=== PATIENT | female | born 1990 | race Caucasian/White ===

== ENCOUNTER → 2023-06-01 | Outpatient (CLI) | payer SELFPAY, OTHER ==
--- NOTE | 2023-06-01 14:41 | US_ITS ---
STUDY: ULTRASOUND OF THE FEMALE PELVIS - COMPLETE REASON FOR EXAM: Female, 32 years old. Pelvic pain LMP: May 25, 2023. TECHNIQUE: Transabdominal and Transvaginal TECHNICAL QUALITY: Adequate. COMPARISON: None. FINDINGS: The uterus is anteverted and is in a midline position. The uterus is mildly enlarged and measures 10.2 cm x 6.4 cm x 5.1 cm. Normal uterine cervix. The endometrium measures 6.3 mm in thickness, and is hyperechoic. There is no demonstrated endometrial mass. There is no demonstrated myometrial mass. I.U.D. - The patient does not have an I.U.D. The right ovary is visualized. The right ovary measures 4.6 cm x 2.7 cm x 2.9 cm. There is no right ovarian cyst or ovarian mass. There is no visualized right adnexal mass or complex lesion. There is normal arterial and normal venous vascularity. The left ovary is visualized. The left ovary measures 4.4 cm x 2.5 cm x 2.3 cm. There is no left ovarian cyst or ovarian mass. There is no visualized left adnexal mass or complex lesion. There is normal arterial and normal venous vascularity. There is no fluid in the cul-de-sac. The pre void volume of the bladder was 56 ml. US/Transvaginal Non- IMPRESSION: Normal female pelvis. Electronically Signed: Vu Zuleta MD at 15:34 EST ,
--- OUTSIDE RECORDS SUMMARY | 2023-06-01 18:41 | XMS RPT_ITS | CCD ---
Author Name Unknown Address [address] [place] [address] Organization [facility] Care Team Providers Care Toilet Products Molder Name Role Phone Tristan Chase MD Unavailable Tristan Chase MD Unavailable Roscoe CARRILLO, Dr. Tristan Miller Unavailable Carroll HIGH SCHOOL FRENCH TEACHER, Michelle Unavailable Sheri Love MA Unavailable Unavailable Gordo HIGH SCHOOL FRENCH TEACHER, Susy Unavailable Unavailable Adam Singh MD Unavailable Tera Casillas PA-C Unavailable Shay MARRERO, Sylvia Jung Unavailable Uptain CNM, Crystal K Unavailable Vess HIGH SCHOOL FRENCH TEACHER, Nequincy L Unavailable Unavailable César HIGH SCHOOL FRENCH TEACHER, Ana Unavailable Unavailharper e Simone HIGH SCHOOL FRENCH TEACHER, Garima Vaughn Unavailable Unavaila ble Unavailable Unavailable Gas Station Manager/Gynecology Prov. Unavailable Un available TERA CASILLAS Attending Unavailable TERA CASILLAS Primary Care Unavailable TERA CASILLAS Admitting Unavailable SHARON, SARAI PARK Consulting Unavailable PROVIDER, UNKNOWN Consulting Unavailable Medications Current Medications Medication Drug Class(es) Dates Sig (Normalized) Sig (Original) thyroid (assisted) 90 mg oral tablet (6 sources) Start: 06-25-2020 take 1 tablet by mouth once daily Moncho Thyroid 90 MG Oral Tablet ; 1 (one) Tablet daily for 0 days Quantity: 90 {Tablet} Refills: 3 Ordered: 25-Jun-2020 MD Tristan Chase Start: 25-Jun-2020 Completed/Discontinued Medications Medication Drug Class(es) Dates Sig (Normalized) Sig (Original) 12 hr buPROPion hydrochloride 150 mg extended release oral tablet (3 sources) Aminoketone Start: 10-04-2013 End: 04-11-2014 BUPROPION HCL ER (SR), 150MG (Oral Tablet Extended Release 12 Hour) ; 1 (one) Tablet Tablet once daily in the morning for 0 days Quantity: 30 {Tablet} Refills: 2 Ordered: 11-Apr-2014 MJ Lindsey Start: 04-Oct-2013 End: 11-Apr-2014 Status: Inactive Comments: Note to pharmacist: 12- hour form, but used only once daily Problems Active Problems Problem Classification Problem Date Documented Da te Episodic/Chronic Abdominal pain (20 sources) Abdominal pain; Translations: [Unspecified abdominal pain] Onset: 04-06-2023 03-30-2023 Episodic Cardiac dysrhythmias (6 sources) Tachycardia; Translations: [Tachycardia, unspecified] 03-30-2023 Episodic Hemorrhage during ; abruptio placenta; placenta previa (3 sources) Threatened miscarriage; Translations: [Threatened ] 11-09-2016 Episodic Malaise and fatigue (9 sources) Fatigue; Translations: [Other fatigue] 03-30-2023 Episodic Malposition; malpresentation (6 sources) Breech presentation; Translations: [Maternal care for breech presentation, fetus 1] 01-04-2019 Episodic Menstrual disorders (7 sources) Irregular periods; Translations: [Irregular menstruation, unspecified] 03-30-2023 Chronic Nonspecific chest pain (3 sources) Chest pain; Translations: [Chest pain, unspecified] 07-30-2018 Episodic Other complications of (3 sources) complications 01-30-2019 Episodic Past or Other Problems Problem Classification Problem Date Documented Da te Episodic/Chronic Unclassified (3 sources) Fatigue - The fatigue has been occurring for 5 months. The course has been constant. The fatigue occurs on arising in the morning and interferes with normal daily activities (Patient states her fatigue is present most days and will worsen if she over exerts herself which will result in a significant drop in energy over the following days). The symptoms have been associated with abdominal pain (Patient states the pain and fullness is in the left upper quadrant, she describes it as a dull aching, she notices increased pressure with specific body positions and primary worsening when lying on her left side as if something is pushing out , patient denies association of symptoms with consuming food, she notes mild constipation as a baseline for her), excessive sleeping, headache, muscle weakness, nasal stuffiness, runny nose and sore throat. 03-30-2023 Unclassified (3 sources) post dates evaluation - Currently under care of boom cat operator. Here to have post dates u/s. Tried castor oil yesterday. 01-30-2019 Unclassified (3 sources) Position of the Baby - Patient is a patient of the [facility]. Patient is here for an ultrasound to check position of the baby. 01-04-2019 Unclassified (3 sources) Confirming Position via Ultrasound - Here to see if baby is vertex or breech from [facility] 12-14-2018 Unclassified (3 sources) tachycardia - Currently 17 wks . Complaints of shortness of breath and dyspnea and chest pain and tachycardia. She reports it was present in other pregnancies and gets worse as the progressesOn thyroid medicaiton and had recent labs and dose change and is followed by Dr Orellana in [place]. 07-30-2018 Unclassified (3 sources) possible demise - Had possible miscarriage in August at 5 wks from LMP. Then in October suspected again. She went to see Rosalva Brown wire spring relay adjuster and had 2 ultrasounds showing a 7 week sac but no heartbeat. Has not had bleeding. 11-09-2016 Unclassified (3 sources) Post- visit - The patient is here for a scheduled follow-up visit after a vaginal delivery. The was complicated by postdates without meconium. The patient feels well with no complaints, is sleeping well and has good energy level. There are no urinary problems. There are no bowel problems. Perineum/wound: perineum healing well. The patient is formula feeding the . Menstruation: Last menstrual period date: (12-22). Patient states that sexual activity has resumed. The patient has resumed physical activity. Patient states that she is coping/adjusting to motherhood well and family is interacting well with . 01-01-2015 Unclassified (3 sources) visit - The patient is here for a 40 week visit. 10-22-2014 Unclassified (3 sources) visit - The patient is here for a 39 week visit. 10-17-2014 Unclassified (3 sources) visit - The patient is here for a 38 week visit. 10-10-2014 Unclassified (3 sources) visit - The patient is here for a 37 week visit. 10-01-2014 Unclassified (6 sources) visit - The patient is here for a 36 week visit. 09-24-2014 Unclassified (3 sources) visit - The patient is here for a 34 week visit. 09-12-2014 Unclassified (3 sources) visit - The patient is here for a 33 week visit. 09-03-2014 Unclassified (3 sources) visit - The patient is here for a 32 week visit. 08-29-2014 Unclassified (3 sources) visit - The patient is here for a 28 week visit. 07-30-2014 Unclassified (3 sources) visit - Note for visit : -18 hrs of RUQ pain, walking slowly due to pain. Nausea. No fever. No bleeding. 06-16-2014 Unclassified (3 sources) Visit - The patient is here for a 20 week visit. 06-05-2014 Unclassified (3 sources) Visit, Initial - The patient suspects she is due to a positive home test, missed menses and morning sickness. Last menstrual period: Date: (01/11/2014). - (1). The patient complains of nausea and vomiting. There has been no vaginal discharge. There has been no vaginal bleeding. There have been no urinary problems. Bowel problems include constipation. Contraceptive history includes none. 04-25-2014 Unclassified (3 sources) Follow up consultation - The patient is here to follow-up after Emergency Room/Urgent Care (03/30/14 - went in with muscle spasms and jerking of extremities. EKG done and patient was transferred to [facility] EEG and brain CT were done there. Per patient everything was ok except her thyroid and low magnesium. She was started on synthroid and told TSH would need rechecked at some point in the future. Has headaches - they are about once a day - and continues with jerking of hands and feet. Also having some dizziness. Has been eating and drinking well. Is to schedule f/u with neurologist. No triggers noted for symptoms other than maybe when she is tired; do not occur daily. Per pt's the hospital told them it could have been stress related since they had moved the day before they started.She is 13 weeks - has not yet established with an OB. Is taking vitamins.). 04-15-2014 Unclassified (3 sources) [ADDITIONAL REASON] Transition into care - The patient is transitioning into care from a hospital and a summary of care was reviewed (partially; only records from [facility] were available) . 04-15-2014 Unclassified (3 sources) recheck - Patient is here for a 2 wk recheck from on 01/25/14. She was seen for abdominal pain and started on ranitidine and miralax. States that the pain has gotten better (less frequent) but still has occasional sharp pain in LUQ. She has continued to take some of the medication from the dredge captain - just those for digestion. Took miralax for one week and then switched to a natural medication which she doesn't think is helping quite as much. Taking ranitidine. Appetite has improved. Having 1-2 BMs daily. Pain now is mostly when riding in the bugging or doing heavy lifting. 01-29-2014 Unclassified (3 sources) Abdominal pain - The onset of the abdominal pain has been gradual and has been occurring in a persistent pattern for 9 months. The course has been recurrent (Symptoms are intermittent but experiences them daily.). The pain is described as moderate (Describes as piercng/throbbing pain in left upper abdomen (under her rib). Sometimes radiates down. Sometimes worse with breathing and eating (no particular foods noted). Occasionally has dizziness, nausea, and chills - these sometimes accompany the pain but not always. Periods are regular - finished yesterday. Has been seeing a dredge captain and he had done bloodwork and is giving her different medications to try - has approx 10 pill bottles with her today. Pain is always on the left side. At its worst it is 8/10 but usually is 5-6/10. No diarrhea, more often constipation - last BM was Monday afternoon. Usually has a BM every few days. No bloating but some fullness. 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 Given levsin which didn't seem to help with symptoms.Was in the ER 03/2013 for the pain. Abd CT done at that time which showed an ovarian cyst. Hasn't had any further imaging since then. Was in the ER again a few weeks ago for muscle spasms - more labs done which were essentially normal.). There has been no associated vomiting. 01-16-2014 Unclassified (3 sources) Follow up laboratory test results - Lab results returned on : (09/16/13) include other (abnormal thyroid). Current symptoms include other (Patient complains of occasional fatigue. Denies any other symptoms.). Note for Laboratory test results follow-up : Patient's weight has increased 14# since her last visit which was 3 months ago. 10-07-2013 Unclassified (3 sources) Abdominal pain - The onset of the abdominal pain has been gradual and has been occurring in a persistent pattern for 8 weeks. The course has been increasing. The pain is described as a moderate sharp pain. The pain is located in the right lower quadrant, left lower quadrant and suprapubic area and radiates to the back. The symptoms are aggravated by meals (1/2 to 1 hour after eating) and meals (2 to 4 hours after eating) but have no relieving factors. The symptoms have been associated with bloating, fever (chills) and nausea, while the symptoms have not been associated with constipation, dark urine, diarrhea, dysuria or vomiting. Note for Abdominal pain : Patient was seen by a natural doctor who believes patient has a ovarian infection. He did a test of blood on a qtip per mother. 06-20-2013 Unclassified (3 sources) Abdominal pain - The onset of the abdominal pain has been gradual and has been occurring in a persistent pattern for 2 weeks. The course has been increasing. The pain is described as a moderate sharp pain and dull ache. The pain is located in the left lower quadrant and does not radiate. The symptoms are aggravated by meals (1/2 to 1 hour after eating) (sometimes eating resolves the pain too) but have no relieving factors. The symptoms have been associated with nausea, while the symptoms have not been associated with bloating, constipation, diarrhea, dysuria, fever, heartburn, hematemesis or vomiting. Previous evaluations have included CT scan. Note for Abdominal pain : Pt c/o dizziness at times 04-20-2013 Results Test Name Value Interpretation Reference Range Facil ity Vital Signs Date Time Vital Sign Value Performing Clinician Faci komal 03-30-2023 13:46-0500 Body height 165.74 cm Sheri Love MA [facility] [employer] 03-30-2023 13:46-0500 Body mass index (BMI) [Ratio] 45.74 kg/m2 Sheri Love MA [employer] 03-30-2023 13:46-0500 Body surface area Derived from formula 2.28 m2 Sheri Love MA [employer] 03-30-2023 13:46-0500 Body weight 125.65 kg Sheri Love MA [employer]. 03-30-2023 13:46-0500 Diastolic blood pressure 87 mm[Hg] Sheri Love MA [employer]; [employer] Encounters Encounter Date Encounter Type Care Provider Facility Start: 04-11-2023 End: 04-11-2023 Orders Trisatn Chase MD Work Phone: [facility] Start: 04-06-2023 End: 04-06-2023 [facility] Start: 03-30-2023 End: 03-30-2023 Office outpatient visit 25 minutes Tristan Chase MD Work Phone: [facility] Start: 06-25-2020 End: 06-25-2020 Patient encounter procedure Tristan Chase MD Work Phone: [facility] Start: 06-17-2020 End: 06-17-2020 Orders Tristan Chase MD Work Phone: [facility] Start: 09-25-2019 End: 09-25-2019 Office outpatient visit 15 minutes Tristan Chase MD Work Phone: [facility] Start: 02-11-2019 End: 02-11-2019 Telephone follow-up Tristan Chase MD Work Phone: [facility] Start: 01-30-2019 End: 01-30-2019 Patient encounter procedure Tristan Chase MD Work Phone: [facility] Start: 01-04-2019 End: 01-04-2019 Office outpatient visit 5 minutes Tristan Chase MD Work Phone: [facility] Start: 12-14-2018 End: 12-14-2018 Office outpatient visit 10 minutes Tristan Chase MD Work Phone: [facility] Start: 08-10-2018 End: 08-10-2018 Historical Summary Tristan Chase MD Work Phone: [facility] Start: 07-30-2018 End: 07-30-2018 Patient encounter procedure Tristan Chase MD Work Phone: [facility] Start: 11-09-2016 End: 11-09-2016 Patient encounter procedure Tristan Chase MD Work Phone: [facility] Start: 08-09-2016 End: 08-10-2016 Orders Tristan Chase MD Work Phone: [facility] Start: 08-08-2016 End: 08-08-2016 Orders Tristan Chase MD Work Phone: [facility] Start: 12-18-2015 End: 12-18-2015 Nursing evaluation of patient and report Tristan Chase MD Work Phone: [facility] Start: 07-21-2015 End: 07-22-2015 Orders Tristan Chase MD Work Phone: [facility] Start: 06-22-2015 End: 06-22-2015 Orders Tristan Chase MD Work Phone: [facility] Start: 12-31-2014 End: 01-01-2015 Patient encounter procedure Tristan Chase MD Work Phone: [facility] Start: 10-27-2014 End: 10-27-2014 Patient encounter procedure Tristan Chase MD Work Phone: [facility] Start: 10-22-2014 End: 10-22-2014 Patient encounter procedure Tristan Chase MD Work Phone: [facility] Start: 10-17-2014 End: 10-17-2014 Patient encounter procedure Tristan Chase MD Work Phone: [facility] Start: 10-10-2014 End: 10-10-2014 Patient encounter procedure Tristan Chase MD Work Phone: [facility] Start: 10-01-2014 End: 10-01-2014 Patient encounter procedure Tristan Chase MD Work Phone: [facility] Start: 09-24-2014 End: 09-24-2014 Patient encounter procedure Tristan Chase MD Work Phone: [facility] Start: 09-19-2014 End: 09-19-2014 Patient encounter procedure Tristan Chase MD Work Phone: [facility] Start: 09-12-2014 End: 09-12-2014 Patient encounter procedure Tristan Chase MD Work Phone: [facility] Start: 09-03-2014 End: 09-03-2014 Patient encounter procedure Tristan Chase MD Work Phone: [facility] Start: 09-02-2014 End: 09-02-2014 Orders Tristan Chase MD Work Phone: [employer] Start: 08-29-2014 End: 08-29-2014 Patient encounter procedure Tristan Chase MD Work Phone: [facility] Start: 07-30-2014 End: 07-30-2014 Patient encounter procedure Tristan Chase MD Work Phone: [facility] Start: 07-02-2014 End: 07-02-2014 Patient encounter procedure Tristan Chase MD Work Phone: [facility] Start: 06-16-2014 End: 06-16-2014 Patient encounter procedure Tristan Chase MD Work Phone: [facility] [employer] Start: 06-05-2014 End: 06-05-2014 Patient encounter procedure Tristan Chase MD Work Phone: [facility] Start: 05-28-2014 End: 05-28-2014 Orders Tristan Chase MD Work Phone: [employer] Start: 05-08-2014 End: 05-08-2014 Patient encounter procedure Tristan Chase MD Work Phone: [facility] Start: 04-24-2014 End: 04-25-2014 Patient encounter procedure Tristan Chase MD Work Phone: [facility] Start: 04-11-2014 End: 04-15-2014 Patient encounter procedure Tristan Chase MD Work Phone: [facility] Start: 01-29-2014 End: 01-29-2014 Patient encounter procedure Tristan Chase MD Work Phone: [facility] Start: 01-15-2014 End: 01-16-2014 Patient encounter procedure Tristan Chase MD Work Phone: [facility] Start: 10-04-2013 End: 10-07-2013 Patient encounter procedure Tristan Chase MD Work Phone: [facility] Start: 06-18-2013 End: 06-20-2013 Patient encounter procedure Tristan Chase MD Work Phone: [facility] Start: 04-20-2013 End: 04-20-2013 Patient encounter procedure Tristan Chase MD Work Phone: [facility] Procedures Date Procedure Procedure Detail Performing Clinician Start: 03-30-2023 End: 04-06-2023 Ct abdomen w/contrast material Tera Casillas PA-C Work Phone: Start: 01-30-2019 End: 01-30-2019 Us preg uterus after 1st trimest 04/10 gestation Tristan Chase MD Work Phone: Start: 01-30-2019 End: 01-30-2019 Ob care antepartum vag dlvr & Tristan Chase MD Work Phone: Start: 08-09-2018 End: 08-09-2018 Echocardiography Tristan Villarreal Work Phone: Plan of Treatment Date Care Activity Detail Author Start: 03-30-2023 Ct abdomen w/contras t material Abdomen Only CT W/ Contrast per protocol ([id number]) Start: 30-Mar-2023 Intent [facility] [employer] [employer].; [employer] Immunizations Immunization Date Immunization Notes Care Provider Fa cili 12-04-1997 diphtheria, tetanus toxoids and acellular pertussis vaccine Tristan Chase MD Work Phone: [employer] 12-04-1997 measles, mumps and rubella virus vaccine Tristan Chase MD Work Phone: [employer] 12-04-1997 trivalent poliovirus vaccine, live, oral Tristan Chase MD Work Phone: [employer]; [employer] 07-13-1993 diphtheria, tetanus toxoids and acellular pertussis vaccine Tristan Chase MD Work Phone: [employer] 07-13-1993 trivalent poliovirus vaccine, live, oral Tristan Chase MD Work Phone: [employer]; [employer] 11-24-1992 haemophilus influenz ae type b vaccine, PRP-T conjugate Tristan Chase MD Work Phone: [employer]; [employer] 11-24-1992 measles, mumps and rubella virus vaccine Tristan Chase MD Work Phone: [employer]; [employer] 02-25-1992 diphtheria, tetanus toxoids and acellular pertussis vaccine Tristan Chase MD [facility] [employer]. 1991 diphtheria, tetanus toxoids and acellular pertussis vaccine Tristan Chase MD Work Phone: [facility].; [facility] [employer] [facility]. 1991 trivalent poliovirus vaccine, live, oral Tristan Chase MD Work Phone: [facility] [employer].; [employer] 1991 diphtheria, tetanus toxoids and acellular pertussis vaccine Tristan Chase MD Work Phone: [facility] [employer] [employer].; [employer]. 1991 trivalent poliovirus vaccine, live, oral Tristan Chase MD Work Phone: [employer] Payers Date Payer Category Payer Unknown [id number] Unknown 30-1 Unknown Social History Date Type Detail Facility Spouse Spouse [facility] [employer]; [employer] Tobacco Use: Tobacco Use: ; Never smoker. [facility] [employer].; [employer] Female [facility] [employer] Work Phone: Never smoked tobacco [employer] Work Phone: Summary Purpose Family History No Family History Records Found Father Status:Active Comments:In good health. Baljeet Erb Mother Status:Active Comments:In good health. Zabrina Erb Father Status:Active Comments:In good health. Baljeet Erb Mother Status:Active Comments:In good health. Zabrina Erb Father Status:Active Comments:In good health. Baljeet Erb Mother Status:Active Comments:In good health. Zabrina Erb Advance Directives No Advanced Directives Records FoundNo Advanced Directives Records FoundNo Advanced Directives Records Found Additional Source Comments INFORMATION SOURCE (unrecogn ized section and content) DATE CREATED AUTHOR AUTHOR'S ORGANIZ ATION 04/01/2023 [facility] DATE CREATED AUTHOR AUTHOR'S ORGANVINCENT ATION 04/15/2023 [facility] FOR RECORDS PERTAINING TO PATIENTS WHO ARE OR HAVE BEEN ENROLLED IN A CHEMICAL DEPENDENCY/SUBSTANCEABUSE PROGRAM, SOME INFORMATION MAY BE OMITTED. This clinical summary was aggregated from multiple sources. Caution should be exercised in using it in the provision of clinical care. This summary normalizes information from multiple sources, and as a consequence, information in this document may materially change the coding, format and clinical context of patient data. In addition, data may be omitted in some cases. CLINICAL DECISIONS SHOULD BE BASED ON THE PRIMARY CLINICAL RECORDS. [employer] [facility]. provides no warranty or guarantee of the accuracy or completeness of information in this document.
== END | disposition home or self-care (01) ==
PROVIDERS: PCP Physician Assistant; Referring Provider Nurse Practitioner Women's Health; Visit Provider Nurse Practitioner Women's Health
DX: R10.2 Pelvic and perineal pain (principal)
CPT/HCPCS: 76830; 76856

== ENCOUNTER → 2023-06-19 | Outpatient (CLI) | payer OTHER, SELFPAY ==
--- OUTSIDE RECORDS SUMMARY | 2023-06-19 12:05 | XMS RPT_ITS | CCD ---
Author Name Unknown Address [address] [place] [address] Organization [facility] Care Team Providers Care Counselor At Law Name Role Phone Tristan Chase MD Unavailable [phone] Tristan Chase MD Unavailable Roscoe CARRILLO, Dr. Tristan Miller Unavailable Carroll MENTAL HEALTH PROGRAM SPECIALIST, Michelle Unavailable Sheri Love MA Unavailable Unavailable Gordo MENTAL HEALTH PROGRAM SPECIALIST, Susy Unavailable Unavailable Adam Singh MD Unavailable Tera Casillas PA-C Unavailable Shay MARRERO, Sylvia Jung Unavailable Uptain CNM, Crystal K Unavailable Vess MENTAL HEALTH PROGRAM SPECIALIST, Nequincy L Unavailable Unavailable César MENTAL HEALTH PROGRAM SPECIALIST, Ana Unavailable Unavailharper e Simone MENTAL HEALTH PROGRAM SPECIALIST, Garima Vaughn Unavailable Unavaila ble Unavailable Unavailable Peanut Butter Maker/Gynecology Prov. Unavailable Un available TERA CASILLAS Attending Unavailable TERA CASILLAS Primary Care Unavailable TERA CASILLAS Admitting Unavailable SHARON, SARAI PARK Consulting Unavailable PROVIDER, UNKNOWN Consulting Unavailable Medications Current Medications Medication Drug Class(es) Dates Sig (Normalized) Sig (Original) thyroid (half-way) 90 mg oral tablet (6 sources) Start: [...] dates evaluation - Currently under care of grocery deliverer. Here to have post dates u/s. Tried castor oil yesterday. 01-30-2019 Unclassified (3 sources) Position of the Baby - Patient is a patient of the [facility] [place]. Patient is here for an ultrasound to check position of the baby. 01-04-2019 Unclassified (3 sources) Confirming Position via Ultrasound - Here to see if baby is vertex or breech from [facility] [place] 12-14-2018 Unclassified (3 sources) tachycardia - Currently 17 wks . Complaints of shortness of breath and dyspnea and chest pain and tachycardia. She reports it was present in other pregnancies and gets worse as the progressesOn thyroid medicaiton and had recent labs and dose change and is followed by Dr Orellana in [place]. 07-30-2018 Unclassified (3 sources) possible demise - Had possible miscarriage in August at 5 wks from LMP. Then in October suspected again. She went to see Rosalva Brown displayer merchandise and had 2 ultrasounds showing a 7 [...] EKG done and patient was transferred to [facility] EEG and brain CT were done [...] care was reviewed (partially; only records from [facility] were available) . 04-15-2014 Unclassified (3 sources) recheck - Patient is here for a 2 wk recheck from on 01/25/14. She was seen for abdominal pain and started on ranitidine and miralax. States that the pain has gotten better (less frequent) but still has occasional sharp pain in LUQ. She has continued to take some of the medication from the assistant professor of philosophy - just those for digestion. Took miralax [...] - finished yesterday. Has been seeing a assistant professor of philosophy and he had done bloodwork and is [...] Body height 165.74 cm Sheri Love MA [facility] 03-30-2023 13:46-0500 Body mass index (BMI) [Ratio] 45.74 kg/m2 Sheri Love MA [employer] 03-30-2023 13:46-0500 Body surface area Derived from formula 2.28 m2 Sheri Love MA [employer] 03-30-2023 13:46-0500 Body weight 125.65 kg Sheri Love MA [employer]. 03-30-2023 13:46-0500 Diastolic blood pressure 87 mm[Hg] Sheri Love MA [employer] Encounters Encounter Date Encounter Type Care Provider Facility Start: 04-11-2023 End: 04-11-2023 Orders Tristan Chase MD Work Phone: [facility] Start: 04-06-2023 End: 04-06-2023 [facility] Start: 03-30-2023 End: 03-30-2023 Office outpatient visit 25 minutes Tristan Chase MD Work Phone: [facility] Start: 06-25-2020 End: 06-25-2020 Patient encounter procedure Tristan Chase MD Work Phone: [facility] Start: 06-17-2020 End: 06-17-2020 Orders Tristan Chase MD Work Phone: [facility] Start: 09-25-2019 End: 09-25-2019 Office outpatient visit 15 minutes Tristan Chase MD Work Phone: [facility] Start: 02-11-2019 End: 02-11-2019 Telephone follow-up Tristan Chase MD Work Phone: [facility] Start: 01-30-2019 End: 01-30-2019 Patient encounter procedure Tristan Chase MD Work Phone: [facility] Start: 01-04-2019 End: 01-04-2019 Office outpatient visit 5 minutes Tristan Chase MD Work Phone: [facility] Start: 12-14-2018 End: 12-14-2018 Office outpatient visit 10 minutes Tristan Chase MD Work Phone: [facility] Start: 08-10-2018 End: 08-10-2018 Historical Summary Tristan Chase MD Work Phone: [facility] Start: 07-30-2018 End: 07-30-2018 Patient encounter procedure Tristan Chase MD Work Phone: [facility] Start: 11-09-2016 End: 11-09-2016 Patient encounter procedure Tristan Chase MD Work Phone: [facility] Start: 08-09-2016 End: 08-10-2016 Orders Tristan Chase MD Work Phone: [facility] Start: 08-08-2016 End: 08-08-2016 Orders Tristan Chase MD Work Phone: [facility] Start: 12-18-2015 End: 12-18-2015 Nursing evaluation of patient and report Tristan Chase MD Work Phone: [facility] Start: 07-21-2015 End: 07-22-2015 Orders Tristan Chase MD Work Phone: [facility] Start: 06-22-2015 End: 06-22-2015 Orders Tristan Chase MD Work Phone: [facility] Start: 12-31-2014 End: 01-01-2015 Patient encounter procedure Tristan Chase MD Work Phone: [facility] Start: 10-27-2014 End: 10-27-2014 Patient encounter procedure Tristan Chase MD Work Phone: [facility] Start: 10-22-2014 End: 10-22-2014 Patient encounter procedure Tristan Chase MD Work Phone: [facility] Start: 10-17-2014 End: 10-17-2014 Patient encounter procedure Tristan Chase MD Work Phone: [facility] Start: 10-10-2014 End: 10-10-2014 Patient encounter procedure Tristan Chase MD Work Phone: [facility] Start: 10-01-2014 End: 10-01-2014 Patient encounter procedure Tristna Chase MD Work Phone: [facility] Start: 09-24-2014 End: 09-24-2014 Patient encounter procedure Tristan Chase MD Work Phone: [facility] Start: 09-19-2014 End: 09-19-2014 Patient encounter procedure Tristan hCase MD Work Phone: [facility] Start: 09-12-2014 End: 09-12-2014 Patient encounter procedure Tristan Chase MD Work Phone: [facility] Start: 09-03-2014 End: 09-03-2014 Patient encounter procedure Tristan Chase MD Work Phone: [facility] Start: 09-02-2014 End: 09-02-2014 Orders Tristan Chase MD Work Phone: [employer] Start: 08-29-2014 End: 08-29-2014 Patient encounter procedure Tristan Chase MD Work Phone: [facility] Start: 07-30-2014 End: 07-30-2014 Patient encounter procedure Tristan Chase MD Work Phone: [facility] Start: 07-02-2014 End: 07-02-2014 Patient encounter procedure Tristan Chase MD Work Phone: [facility] Start: 06-16-2014 End: 06-16-2014 Patient encounter procedure Tristan Chase MD Work Phone: [facility] Start: 06-05-2014 End: 06-05-2014 Patient encounter procedure Tristan Chase MD Work Phone: [facility] Start: 05-28-2014 End: 05-28-2014 Orders Tristan Chase MD Work Phone: [employer] Start: 05-08-2014 End: 05-08-2014 Patient encounter procedure Tristan Chase MD Work Phone: [facility] Start: 04-24-2014 End: 04-25-2014 Patient encounter procedure Tristan Chase MD Work Phone: [facility] Start: 04-11-2014 End: 04-15-2014 Patient encounter procedure Tristan Chase MD Work Phone: [facility] Start: 01-29-2014 End: 01-29-2014 Patient encounter procedure Tristan Chase MD Work Phone: [facility] Start: 01-15-2014 End: 01-16-2014 Patient encounter procedure Tristan Chase MD Work Phone: [facility] Start: 10-04-2013 End: 10-07-2013 Patient encounter procedure Tristan Chase MD Work Phone: [facility] Start: 06-18-2013 End: 06-20-2013 Patient encounter procedure Tristan Chase MD Work Phone: [facility] Start: 04-20-2013 End: 04-20-2013 Patient encounter procedure Tristan Chase MD Work Phone: [facility] Procedures Date Procedure Procedure Detail Performing Clinician [...] Abdomen Only CT W/ Contrast per protocol (99316) Start: 30-Mar-2023 Intent [employer] [facility] Immunizations Immunization Date Immunization Notes Care Provider Fa cili 12-04-1997 diphtheria, tetanus toxoids and acellular pertussis vaccine Tristan Chase MD Work Phone: [employer] 12-04-1997 measles, mumps and rubella virus vaccine Tristan Chase MD Work Phone: [employer]. 12-04-1997 trivalent poliovirus vaccine, live, oral Tristan Chase MD Work Phone: [employer]. 07-13-1993 diphtheria, tetanus toxoids and acellular pertussis vaccine Tristan Chase MD Work Phone: [employer]. 07-13-1993 trivalent poliovirus vaccine, live, oral Tristan Chase MD Work Phone: [employer] 11-24-1992 haemophilus influenz ae type b vaccine, PRP-T conjugate Tristan Chase MD Work Phone: [employer]. 11-24-1992 measles, mumps and rubella virus vaccine Tristan Chase MD Work Phone: [employer] 02-25-1992 diphtheria, tetanus toxoids and acellular pertussis vaccine Tristan Chase MD Work Phone: [facility].; [employer] [facility]. 1991 diphtheria, tetanus toxoids and acellular pertussis vaccine Tristan Chase MD Work Phone: [facility].; [employer] [facility]. 1991 trivalent poliovirus vaccine, live, oral Tristan Chase MD Work Phone: [employer] [facility].; [employer]. 1991 diphtheria, tetanus toxoids and acellular pertussis vaccine Tristan Chase MD Work Phone: [employer] [facility].; [employer]. 1991 trivalent poliovirus vaccine, live, oral Tristan Chase MD Work Phone: [employer] Payers Date Payer Category Payer Unknown [id number] Unknown 30-1 Unknown Social History Date Type Detail Facility Spouse Spouse [facility] [employer] Tobacco Use: Tobacco Use: ; Never smoker. [employer] [facility] [employer]. Female [facility] [employer]; [employer]. Work Phone: Never smoked tobacco [employer]. Work Phone: Summary Purpose Family History No [...] DATE CREATED AUTHOR AUTHOR'S ORGANVINCENT ATION 04/15/2023 [facility] FOR RECORDS PERTAINING TO PATIENTS WHO ARE [...] BE BASED ON THE PRIMARY CLINICAL RECORDS. [employer] [facility]. provides no warranty or guarantee of the accuracy or completeness of information in this document.
[2023-06-22 14:09] LABS: HPV APTIMA, High Risk Negative (Negative)
== END | disposition home or self-care (01) ==
LOC: LABSPEC 11:12
PROVIDERS: PCP Physician Assistant; Referring Provider Nurse Practitioner Women's Health; Visit Provider Nurse Practitioner Women's Health
DX: Z12.4 Encounter for screening for malignant neoplasm of cervix (principal)
CPT/HCPCS: 87624; 88175; G0145